=== PATIENT | female | born 1955 | race Two or more races ===

== ENCOUNTER 2024-01-18 15:17 | Emergency (ER) | payer OTHER, BC ==
[~2024-01-18] VITALS: Ht 152.4 cm; Wt 77.1 kg
[2024-01-18] MEDS ORDERED: ACID REDUCER20 M1 PO (16:19)
[2024-01-18] MEDS ORDERED: GUAIFENESIN/DEXTROMETHORPHAN 10ML BLIST.PACK PO ONE (18:30)
[2024-01-18] MEDS ORDERED: ACETAMINOPHEN 500 MG GEL..CAP PO ONE (18:30)
[2024-01-18] MEDS ORDERED: CETIRIZINE HCL 5 MG/5 ML ML PO ONE (18:30)
[2024-01-18 19:08] LABS: HEMATOCRIT 40.6 % (36.0-45.00); MEAN CELL VOLUME 90.2 fL (80.00-100.00); MEAN CORPUSCULAR HGB CONC 34.4 g/dl (32.0-36.0); PLATELET COUNT 306 K/uL (150-450); RED CELL DISTRIBUTION WIDTH 13.3 % (11.5-14.5)
[2024-01-18] MEDS ORDERED: ZYRTEC10 MG PO (19:49)
[2024-01-18] MEDS ORDERED: TUSSIN DM LIQU118 ML PO (19:49)
[2024-01-18] MEDS ORDERED: ZITHROMAX500 MG PO (19:55)
== END 2024-01-18 20:43 | disposition home or self-care (01) ==
LOC: ER 15:20
PROVIDERS: Preventive Medicine Public Health & General Preventive Medicine
DX: J06.9 Acute upper respiratory infection, unspecified (principal); J00 Acute nasopharyngitis [common cold]; Z20.822 Contact with and (suspected) exposure to COVID-19